=== PATIENT | male | born 1970 | race American Indian/Alaskan Native ===

== ENCOUNTER 2016-10-15 08:45 | Emergency (ER) | payer OTHER ==
[2016-10-15] MEDS ORDERED: ULTRAM PO ONE (11:41)
[2016-10-15] MEDS ORDERED: TORADOL IM ONE (11:41)
[2016-10-15] MEDS ORDERED: CATAPRES ONE (12:12)
[2016-10-15] MEDS ORDERED: CATAPRES PO ONE (12:13)
--- NOTE | 2016-10-15 12:14 | XRay Report ---
CHEST 2 VIEWS INDICATION: Chest tightness. COMPARISON: None similar at this institution. FINDINGS: PA and lateral chest radiographs demonstrate normal cardiomediastinal silhouette. Clear lungs. Intact bones. CONCLUSION: No acute disease in the chest. Thank you for the opportunity to participate in this patient's care.
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
[2016-10-15 12:25] LABS: Basophils % (Auto) 0.6 % (0.0-1.8); Eosinophils % (Auto) 4.5 % (0.0-4.3); Hematocrit 51.2 % (35.5-45.6); Mean Corpuscular HGB Conc 33 % (32-34); Mean Corpuscular Hemoglobin 27 pg (28-32); Mean Corpuscular Volume 81 fl (84-94); Platelet Count 246 K/mm3 (140-440); Red Blood Count 6.32 M/mm3 (3.65-5.03); Red Cell Distribution Width 13.3 % (13.2-15.2)
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
[2016-10-15 12:42] LABS: Creatine Kinase MB 1.8 ng/mL (0.0-4.0)
[2016-10-15 12:44] LABS: Anion Gap 20 mmol/L; BUN/Creatinine Ratio 12.22; Blood Urea Nitrogen 11 mg/dL (9-20); Calcium 9.1 mg/dL (8.4-10.2); Carbon Dioxide 23 mmol/L (22-30); Chloride 102.1 mmol/L (98-107); Creatine Kinase 485 units/L (55-170); Glucose 101 mg/dL (75-100); Potassium 4.4 mmol/L (3.6-5.0); Sodium 141 mmol/L (137-145)
[2016-10-15 13:23] VITALS: BP 137/92
== END 2016-10-15 13:54 | disposition home or self-care (01) ==
LOC: ED 08:45
DX: S39.012A Strain of muscle, fascia and tendon of lower back, initial encounter (principal); I10 Essential (primary) hypertension; R07.89 Other chest pain; V49.9XXA Car occupant (driver) (passenger) injured in unspecified traffic accident, initial encounter; Y93.89 Activity, other specified; Y99.9 Unspecified external cause status; Y92.9 Unspecified place or not applicable
CPT/HCPCS: 36415; 71020; 72100; 80048; 82550; 82553; 84484; 85025; 93005; 93010; 96372; 99284; J1885